=== PATIENT | male | born 1980 | race Caucasian/White ===

== ENCOUNTER 2019-04-08 16:28 | Inpatient (IN) | payer SELFPAY ==
[2019-04-08] MEDS ORDERED: Ondansetron PF 4 MG/2 ML Vial ONE (17:01)
[2019-04-08] MEDS ORDERED: Diazepam 5 MG TAB ONE (17:01)
[2019-04-08] MEDS ORDERED: Lorazepam 2 MG/ML VIAL ONE (17:01)
[2019-04-08 17:13] LABS: #Monocytes 1.7 thou/uL (0.11-0.59); #Neutrophils 14.6 thou/uL (1.40-6.50); %Basophils 0.2 % (0.0-1.0); %Eosinophils 0.1 % (0.0-10.0); %Lymphocytes 15.3 % (21.0-51.0); %Monocytes 8.6 % (0.0-10.0); %Neutrophils 75.7 % (42.0-75.0); Hemoglobin 14.9 g/dL (14.0-18.0); Mean Corpuscular HGB CONC 34.5 g/dL (32.0-36.0); Mean Corpuscular Hemoglobin 32.9 pg (27.0-31.0); Mean Corpuscular Volume 95.4 fL (78.0-98.0); Mean Platelet Volume 8.2 fL (7.4-10.4); Platelet Count 300 thou/uL (130-400); RBC Distribution Width 12.7 % (11.5-14.5); Red Blood Cell (RBC) Count 4.53 mill/uL (4.70-6.10); White Blood Cell (WBC) Count 19.3 thou/uL (4.8-10.8)
[2019-04-08 17:32] LABS: ALT (SGPT) 37 U/L (8-55); AST (SGOT) 60 U/L (5-34); Albumin 4.4 g/dL (3.5-5.0); Alcohol Less than 10 mg/dL (Less than 10); Alkaline Phosphatase 64 U/L (40-150); Anion Gap 20 mmol/L (10-20); BUN (Urea Nitrogen) 21 mg/dL (8.9-20.6); Calc. Creatinine Clearance 0 mL/min (70-130); Calcium 9.3 mg/dL (7.8-10.44); Carbon Dioxide 30 mmol/L (22-29); Chloride 92 mmol/L (98-107); Estimated GFR-MDRD 30; Globulin 3.1 g/dL (2.4-3.5); Glucose 116 mg/dL (70-105); Potassium 3.8 mmol/L (3.5-5.1); Protein, Total 7.5 g/dL (6.0-8.3); Sodium 138 mmol/L (136-145)
[2019-04-08] MEDS ORDERED: Ondansetron ODT 4 MG TAB PO PRN (20:20)
[2019-04-08] MEDS: Diazepam 5 MG TAB PO SCH (21:55)
[2019-04-08] MEDS: Ondansetron PF 4 MG/2 ML Vial IVP PRN (21:55)
[2019-04-08 22:13] VITALS: BMI 37.8
--- NOTE | 2019-04-08 22:39 | HP ---
PRIMARY CARE DOCTOR: Dr. Yury Mccall. CODE STATUS: Code status for this patient is full code. TIME OF EVALUATION: 8:00 p.m. CHIEF COMPLAINT: Chief complaint for the patient was alcohol abuse. HISTORY OF PRESENT ILLNESS: This is a 38-year-old male patient with past medical history of alcohol abuse. Patient came to the hospital after having alcohol withdrawal symptoms, reported the last drink that he had was on . He is fully oriented, however, has chills, with tremors, tachycardia with heart rate in the 120s. Symptoms started suddenly and has been gradually getting worse, reported as severe. REVIEW OF SYSTEMS: GENERAL: Do show the patient had no fever. He did have chills and generalized weakness. RESPIRATORY: No cough, sputum production, or shortness of breath. CARDIOVASCULAR: No chest pain. Patient has palpitation. GASTROINTESTINAL: No nausea, vomiting, diarrhea, or abdominal pain. PULMONARY PHYSICIAN: Patient has tremors. No headache or feeling lightheaded. GENITOURINARY: No burning on urination. EXTREMITIES: No leg swelling. All other systems were reviewed and negative, except for the findings mentioned above. PAST MEDICAL HISTORY: Positive for GERD and alcoholism. PAST SURGICAL HISTORY: No surgical history. FAMILY HISTORY: Reviewed and non contributory for current presentation. PSYCHIATRIC HISTORY: No previous psych history. SOCIAL HISTORY: Patient lives at home with family. Lives with a girlfriend. Drinks everyday, more than 10 drinks per day. No drug use. No smoking history. ALLERGIES: NO KNOWN DRUG ALLERGIES REPORTED. MEDICATIONS: Zantac. PHYSICAL EXAMINATION: VITAL SIGNS: On presentation, blood pressure 134/91 with heart rate 128, respiratory rate was 18, temperature 98.6, pain 1/10, and oxygen saturation 97% on room air. GENERAL APPEARANCE: Patient is alert, oriented, and anxious. HEENT: Eyes, normal conjunctivae. Moist oral mucosa. Anicteric. No JVD. RESPIRATORY: Bilateral air entry. No rales. No wheezes. Symmetric expansion. CARDIOVASCULAR: Patient is tachycardic. No murmurs. No gallop. No edema. ABDOMEN: Soft. Normal bowel sounds. MUSCULOSKELETAL: Baseline range of motion and strength. No tenderness. SKIN: Warm, intact. No pallor. No rash. No redness. Peripheral pulses are present. Capillary refill seems to be intact. NEUROLOGIC: Patient has tremors, baseline speech. Cranial nerves seem to be intact. PSYCH: Patient is in good mood. Optimal judgment. LABORATORY DATA: EKG was reviewed. The patient has sinus tachycardia at the rate of 128, SD 164, QRS 82, QT corrected 423. Chest x-ray; patient has no acute findings. Labs are reviewed. The patient has white count 19.3, hemoglobin 14.9, MCV 95.4 , and platelet count 300. Chemistry; sodium 138; potassium 3.8; chloride 92; carbon dioxide 30; anion gap 20; BUN 21; creatinine 2.43, initially on presentation was 3.14, and his baseline creatinine 10 days ago was 1.0; glucose 116; calcium 9.3; total bilirubin 3.0; AST 60; ALT 37; alk phos 64; serum total protein 7.5; albumin 4.4; globulin 3.1; and albumin-globulin ratio is 1.4. Plasma alcohol less than 10. ASSESSMENT AND PLAN: The patient will be placed in the hospital with following medical problems. 1. Alcohol withdrawal. Patient presenting with tachycardia, anxiety, tremors, blood pressure is high. Patient has been started on SOCORRO protocol. We will put the patient on Valium 5 mg t.i.d. as well as Ativan 2 mg q.4 p.r.n. Patient might need higher dose of benzodiazepine if he goes in full-blown delirium tremens. We will monitor closely. We will treat accordingly. 2. Contraction alkalosis secondary to dehydration with carbon dioxide of 30. We will hydrate, and monitor chemistry. 3. Acute kidney injury. Patient presented with creatinine of 3. On previous admission, the creatinine was normal. This is likely secondary to severe dehydration. We will hydrate, we will monitor, we will treat accordingly. 4. Hyperglycemia with blood sugar 116. Patient has no history of diabetes. This is likely secondary to acute hyperadrenergic state, we will treat underlying condition. We will monitor. 5. Leukocytosis with white count 19.3. No evidence of any infection at this point. Might be secondary to alcohol withdrawal, we will monitor, we will treat accordingly. We will send procalcitonin to help us make a better decision. 6. Deep venous thrombosis prophylaxis. 7. Gastroesophageal reflux disease. Reconcile home medications. Job ID: [id number] [facility]
[2019-04-08] MEDS ORDERED: Metoprolol Tartrate 25 MG TAB PO SCH (23:15)
[2019-04-08] MEDS: Sodium Chloride 0.9% 1,000 ML IV SCH (23:30)
[2019-04-09] MEDS: Lorazepam 2 MG/ML VIAL SLOW IVP PRN (02:56)
[2019-04-09] MEDS: Sodium Chloride 0.9% 1,000 ML IV SCH ×3 (05:41→18:13)
[2019-04-09 06:49] LABS: Anion Gap 13 mmol/L (10-20); BUN (Urea Nitrogen) 19 mg/dL (8.9-20.6); Calc. Creatinine Clearance 100 mL/min (70-130); Calcium 7.6 mg/dL (7.8-10.44); Carbon Dioxide 28 mmol/L (22-29); Chloride 99 mmol/L (98-107); Estimated GFR-MDRD 42; Glucose 94 mg/dL (70-105); Potassium 3.3 mmol/L (3.5-5.1); Sodium 137 mmol/L (136-145)
[2019-04-09 09:01] LABS: #Eosinphils 0.1 thou/uL (0.0-0.7); #Lymphocytes 3.6 thou/uL (1.20-3.40); #Monocytes 0.9 thou/uL (0.11-0.59); %Basophils 0.2 % (0.0-1.0); %Eosinophils 0.6 % (0.0-10.0); %Lymphocytes 26.2 % (21.0-51.0); %Monocytes 6.5 % (0.0-10.0); %Neutrophils 66.5 % (42.0-75.0); Hemoglobin 12.4 g/dL (14.0-18.0); Mean Corpuscular HGB CONC 33.2 g/dL (32.0-36.0); Mean Corpuscular Volume 96.3 fL (78.0-98.0); Mean Platelet Volume 8.9 fL (7.4-10.4); Platelet Count 238 thou/uL (130-400); RBC Distribution Width 12.7 % (11.5-14.5); Red Blood Cell (RBC) Count 3.86 mill/uL (4.70-6.10); White Blood Cell (WBC) Count 13.6 thou/uL (4.8-10.8)
[2019-04-09] MEDS: Diazepam 5 MG TAB PO SCH ×3 (09:19→20:31)
[2019-04-09] MEDS: Enoxaparin Sodium 40 MG/0.4 ML SYRINGE SC SCH (09:25)
[2019-04-09] MEDS: Ondansetron PF 4 MG/2 ML Vial IVP PRN (09:25)
--- NOTE | 2019-04-09 14:24 | PDOC.PN ---
- Subjective Encounter Start Date: 04/09/19 Encounter Start Time: 12:00 Subjective: awake, oriented well -: no shaking or palp -: feels better - Objective Resuscitation Status - Order Detail: 04/08/19 20:20 Resuscitation Status Routine Resuscitation Status: FULL: Full Resuscitation MAR Reviewed: Yes Vital Signs & Weight: Vital Signs (12 hours) Temp Pulse Resp BP BP Pulse Ox 04/09/19 12:54 111/64 04/09/19 12:12 98.6 F 99 17 111/64 97 04/09/19 09:19 98.2 F 113 H 16 128/67 97 04/09/19 08:39 128/67 04/09/19 03:38 98.6 F 100 15 106/66 100 Weight Weight 279 lb I&O: 04/08/19 04/09/19 04/10/19 06:59 06:59 06:59 Intake Total 1340 Output Total 800 Balance 540 Result Diagrams: 04/09/19 05:11 04/09/19 05:11 Phys Exam - Physical Examination HEENT: PERRLA, moist MMs Neck: no JVD, supple Respiratory: no wheezing, no rales Cardiovascular: RRR, no significant murmur Gastrointestinal: soft, non-tender, positive bowel sounds Musculoskeletal: no edema, pulses present Neurological: non-focal, moves all 4 limbs Psychiatric: normal affect, A&O x 3 Dx/Plan (1) alcohol abuse with withdrawal Status: Acute (2) YUNIOR (acute kidney injury) Code(s): N17.9 - ACUTE KIDNEY FAILURE, UNSPECIFIED Status: Acute (3) Hypokalemia Code(s): E87.6 - HYPOKALEMIA Status: Acute - Plan has off and on relapses with alc use, freq is q2-3 months now -: its better than before which was q2-3 wks -: he drank around 40 drinks in 4 days from wednesday -: gentle iv hydration, banana bag, librium, ase protocol -: counselled reg alc cessation, says his girlfriend is very supportive * . Review of Systems - Medications/Allergies Allergies/Adverse Reactions: Allergies Allergy/AdvReac Type Severity Reaction Status Date / Time No Known Allergies Allergy Verified 04/09/19 01:59 Medications: Current Medications Acetaminophen (Tylenol) 650 mg PO Q4H PRN PRN Reason: Headache/Fever/Mild Pain (1-3) Diazepam (Valium) 5 mg PO TID [facility] Last Admin: 04/09/19 09:19 Dose: 5 mg Enoxaparin Sodium (Lovenox) 40 mg SC 0900 [facility] Last Admin: 04/09/19 09:25 Dose: 40 mg Sodium Chloride (Normal Saline 0.9%) 1,000 mls @ 150 mls/hr IV .Q6H40M [facility] Last Admin: 04/09/19 12:28 Dose: 1,000 mls Lorazepam (Ativan) 2 mg SLOW IVP Q4H PRN PRN Reason: Anxiety/Agitation Last Admin: 04/09/19 02:56 Dose: 2 mg Metoprolol Succinate (Toprol Xl) 25 mg PO BID [facility] Last Admin: 04/09/19 09:25 Dose: 25 mg Ondansetron HCl (Zofran Odt) 4 mg PO Q6H PRN PRN Reason: Nausea/Vomiting Ondansetron HCl (Zofran) 4 mg IVP Q6H PRN PRN Reason: Nausea/Vomiting Last Admin: 04/09/19 09:25 Dose: 4 mg
[2019-04-09] MEDS: Acetaminophen 325 MG TAB PO PRN ×2 (18:16→22:18)
[2019-04-10] MEDS: Sodium Chloride 0.9% 1,000 ML IV SCH ×2 (01:38→08:18)
[2019-04-10] MEDS: Acetaminophen 325 MG TAB PO PRN ×4 (03:21→21:40)
[2019-04-10] MEDS: Lorazepam 2 MG/ML VIAL SLOW IVP PRN (03:22)
[2019-04-10] MEDS: Diazepam 5 MG TAB PO SCH ×3 (08:18→21:40)
[2019-04-10] MEDS: Folic Acid 1 MG TAB PO SCH (08:18)
[2019-04-10] MEDS: Thiamine 100 MG TAB PO SCH (08:18)
[2019-04-10] MEDS: Cyanocobalamin (Vitamin B-12) 1,000 MCG TAB PO SCH (08:19)
[2019-04-10] MEDS: Enoxaparin Sodium 40 MG/0.4 ML SYRINGE SC SCH (08:19)
--- NOTE | 2019-04-10 13:51 | PDOC.PN ---
- Subjective Encounter Start Date: 04/10/19 Encounter Start Time: 12:00 Subjective: awake, oriented, feels better -: no tremor or palp -: is amb in hallway, no nausea - Objective Resuscitation Status - Order Detail: 04/08/19 20:20 Resuscitation Status Routine Resuscitation Status: FULL: Full Resuscitation MAR Reviewed: Yes Vital Signs & Weight: Vital Signs (12 hours) Temp Pulse Resp BP BP Pulse Ox 04/10/19 12:00 98.0 F 99 18 118/79 96 04/10/19 08:00 98.2 F 99 18 124/85 94 L 04/10/19 04:00 98.4 F 102 H 18 128/87 128/87 93 L Weight Weight 279 lb I&O: 04/09/19 04/10/19 04/11/19 06:59 06:59 06:59 Intake Total 1340 2300 Output Total 800 950 Balance 540 1350 Result Diagrams: 04/09/19 05:11 04/09/19 05:11 Phys Exam - Physical Examination HEENT: PERRLA, moist MMs Neck: no JVD, supple Respiratory: no wheezing, no rales Cardiovascular: RRR, no significant murmur Gastrointestinal: soft, non-tender, positive bowel sounds Musculoskeletal: no edema, pulses present Neurological: non-focal, moves all 4 limbs Psychiatric: normal affect, A&O x 3 Dx/Plan (1) alcohol abuse with withdrawal Status: Acute (2) YUNIOR (acute kidney injury) Code(s): N17.9 - ACUTE KIDNEY FAILURE, UNSPECIFIED Status: Acute (3) Hypokalemia Code(s): E87.6 - HYPOKALEMIA Status: Acute - Plan is eating and drinking better now -: dc iv fluids -: on librium tid, ativan prn -: oral thiamine, folic acid -: dc plan in am, for help with alc abuse help/counselling/resources * . Review of Systems - Medications/Allergies Allergies/Adverse Reactions: Allergies Allergy/AdvReac Type Severity Reaction Status Date / Time No Known Allergies Allergy Verified 04/09/19 01:59 Medications: Current Medications Acetaminophen (Tylenol) 650 mg PO Q4H PRN PRN Reason: Headache/Fever/Mild Pain (1-3) Last Admin: 04/10/19 10:54 Dose: 650 mg Cyanocobalamin (Vitamin B-12) 1,000 mcg PO DAILY [facility] Last Admin: 04/10/19 08:19 Dose: 1,000 mcg Diazepam (Valium) 5 mg PO TID [facility] Last Admin: 04/10/19 08:18 Dose: 5 mg Enoxaparin Sodium (Lovenox) 40 mg SC 0900 [facility] Last Admin: 04/10/19 08:19 Dose: 40 mg Folic Acid (Folvite) 1 mg PO DAILY [facility] Last Admin: 04/10/19 08:18 Dose: 1 mg Lorazepam (Ativan) 2 mg SLOW IVP Q4H PRN PRN Reason: Anxiety/Agitation Last Admin: 04/10/19 03:22 Dose: 2 mg Metoprolol Succinate (Toprol Xl) 25 mg PO BID [facility] Last Admin: 04/10/19 08:18 Dose: 25 mg Ondansetron HCl (Zofran Odt) 4 mg PO Q6H PRN PRN Reason: Nausea/Vomiting Ondansetron HCl (Zofran) 4 mg IVP Q6H PRN PRN Reason: Nausea/Vomiting Last Admin: 04/09/19 09:25 Dose: 4 mg Pantoprazole Sodium (Protonix) 40 mg PO DAILY [facility] Last Admin: 04/10/19 08:18 Dose: 40 mg Thiamine HCl (Thiamine) 100 mg PO DAILY [facility] Last Admin: 04/10/19 08:18 Dose: 100 mg
[2019-04-11] MEDS: Lorazepam 2 MG/ML VIAL SLOW IVP PRN (02:24)
[2019-04-11] MEDS: Acetaminophen 325 MG TAB PO PRN ×3 (02:24→13:43)
[2019-04-11] MEDS: Diazepam 5 MG TAB PO SCH ×3 (07:58→18:40)
[2019-04-11] MEDS: Folic Acid 1 MG TAB PO SCH (07:59)
[2019-04-11] MEDS: Thiamine 100 MG TAB PO SCH (07:59)
[2019-04-11] MEDS: Cyanocobalamin (Vitamin B-12) 1,000 MCG TAB PO SCH (08:01)
[2019-04-11] MEDS: Enoxaparin Sodium 40 MG/0.4 ML SYRINGE SC SCH (08:05)
[2019-04-11 08:24] LABS: ALT (SGPT) 27 U/L (8-55); AST (SGOT) 42 U/L (5-34); Albumin 3.6 g/dL (3.5-5.0); Alkaline Phosphatase 68 U/L (40-150); Anion Gap 14 mmol/L (10-20); BUN (Urea Nitrogen) 10 mg/dL (8.9-20.6); Calc. Creatinine Clearance 158 mL/min (70-130); Calcium 7.6 mg/dL (7.8-10.44); Carbon Dioxide 21 mmol/L (22-29); Chloride 102 mmol/L (98-107); Estimated GFR-MDRD 71; Globulin 2.8 g/dL (2.4-3.5); Glucose 88 mg/dL (70-105); Protein, Total 6.4 g/dL (6.0-8.3); Sodium 134 mmol/L (136-145)
[2019-04-11 08:27] LABS: Potassium 2.9 mmol/L (3.5-5.1)
[2019-04-11 09:58] LABS: Band 1 % (5-11); Eosinophils 1 % (0-10); Hemoglobin 11.7 g/dL (14.0-18.0); Lymphocytes 26 % (21-51); MDiff Complete? YES; Mean Corpuscular HGB CONC 33.5 g/dL (32.0-36.0); Mean Corpuscular Volume 95.5 fL (78.0-98.0); Monocytes 16 % (0-10); Neutrophil 55 % (42-75); Platelet Count 148 thou/uL (130-400); RBC Morphology Normal; Red Blood Cell (RBC) Count 3.67 mill/uL (4.70-6.10); White Blood Cell (WBC) Count 15.6 thou/uL (4.8-10.8)
[2019-04-11] MEDS: Potassium Chloride 20 MEQ TAB PO SCH ×2 (11:36→17:02)
--- NOTE | 2019-04-11 12:34 | PDOC.PN ---
- Subjective Encounter Start Date: 04/11/19 Encounter Start Time: 12:00 Subjective: feels better, no palp or sob -: has b/l ankle pain and swelling - Objective Resuscitation Status - Order Detail: 04/08/19 20:20 Resuscitation Status Routine Resuscitation Status: FULL: Full Resuscitation MAR Reviewed: Yes Vital Signs & Weight: Vital Signs (12 hours) Temp Pulse Resp BP BP Pulse Ox 04/11/19 12:31 98.5 F 98 18 111/77 96 04/11/19 08:00 128/82 93 L 04/11/19 07:45 99.0 F 102 H 18 128/82 93 L 04/11/19 04:00 119/81 04/11/19 03:58 98.9 F 100 21 H 119/81 93 L Weight Weight 279 lb I&O: 04/10/19 04/11/19 04/12/19 06:59 06:59 06:59 Intake Total 2300 Output Total 950 1000 Balance 1350 -1000 Result Diagrams: 04/11/19 07:33 04/11/19 07:33 Phys Exam - Physical Examination HEENT: PERRLA, moist MMs Neck: no JVD, supple Respiratory: no wheezing, no rales Cardiovascular: RRR, no significant murmur Gastrointestinal: soft, non-tender, positive bowel sounds Musculoskeletal: pulses present ankle edema+ b/l Neurological: non-focal, moves all 4 limbs Dx/Plan (1) alcohol abuse with withdrawal Status: Acute (2) YUNIOR (acute kidney injury) Code(s): N17.9 - ACUTE KIDNEY FAILURE, UNSPECIFIED Status: Resolved (3) Hypokalemia Code(s): E87.6 - HYPOKALEMIA Status: Acute (4) Gout attack Code(s): M10.9 - GOUT, UNSPECIFIED Status: Acute Qualifiers: Gout site: ankle Encounter type: initial encounter Comment: b/l - Plan on librium tid, ativan prn -: replace potassium -: colchicine for gout, renal function is almost normal -: may dc home later this evening if he ambulates and K is near normal * . Review of Systems - Medications/Allergies Allergies/Adverse Reactions: Allergies Allergy/AdvReac Type Severity Reaction Status Date / Time No Known Allergies Allergy Verified 04/09/19 01:59 Medications: Current Medications Acetaminophen (Tylenol) 650 mg PO Q4H PRN PRN Reason: Headache/Fever/Mild Pain (1-3) Last Admin: 04/11/19 08:01 Dose: 650 mg Colchicine (Colchicine) 0.6 mg PO BID [facility] Last Admin: 04/11/19 11:37 Dose: 0.6 mg Cyanocobalamin (Vitamin B-12) 1,000 mcg PO DAILY [facility] Last Admin: 04/11/19 08:01 Dose: 1,000 mcg Diazepam (Valium) 5 mg PO TID [facility] Last Admin: 04/11/19 07:58 Dose: 5 mg Enoxaparin Sodium (Lovenox) 40 mg SC 0900 [facility] Last Admin: 04/11/19 08:05 Dose: 40 mg Folic Acid (Folvite) 1 mg PO DAILY [facility] Last Admin: 04/11/19 07:59 Dose: 1 mg Lorazepam (Ativan) 2 mg SLOW IVP Q4H PRN PRN Reason: Anxiety/Agitation Last Admin: 04/11/19 02:24 Dose: 2 mg Metoprolol Succinate (Toprol Xl) 25 mg PO BID [facility] Last Admin: 04/11/19 08:03 Dose: 25 mg Ondansetron HCl (Zofran Odt) 4 mg PO Q6H PRN PRN Reason: Nausea/Vomiting Ondansetron HCl (Zofran) 4 mg IVP Q6H PRN PRN Reason: Nausea/Vomiting Last Admin: 04/09/19 09:25 Dose: 4 mg Pantoprazole Sodium (Protonix) 40 mg PO DAILY [facility] Last Admin: 04/11/19 08:00 Dose: 40 mg Potassium Chloride (K-Dur) 40 meq PO Q6HR [facility] Stop: 04/12/19 06:01 Last Admin: 04/11/19 11:36 Dose: 40 meq Thiamine HCl (Thiamine) 100 mg PO DAILY [facility] Last Admin: 04/11/19 07:59 Dose: 100 mg
[2019-04-11 18:12] LABS: Anion Gap 13 mmol/L (10-20); BUN (Urea Nitrogen) 13 mg/dL (8.9-20.6); Calc. Creatinine Clearance 166 mL/min (70-130); Calcium 7.8 mg/dL (7.8-10.44); Carbon Dioxide 22 mmol/L (22-29); Chloride 104 mmol/L (98-107); Estimated GFR-MDRD 76; Glucose 96 mg/dL (70-105); Potassium 3.3 mmol/L (3.5-5.1); Sodium 136 mmol/L (136-145)
[2019-04-11 18:48] VITALS: BP 109/76; TEMP 98.4
[2019-04-11] MEDS ORDERED: Colchicine 0.6 MG TAB PO SCH (21:00)
--- NOTE | 2019-04-12 09:45 | DIS ---
DATE OF ADMISSION: 04/08/2019 DATE OF DISCHARGE: 04/11/2019 DISCHARGE DISPOSITION: Home. PRIMARY DISCHARGE DIAGNOSES: 1. Alcohol abuse with withdrawal. 2. Acute kidney injury, resolved. 3. Hypokalemia, resolving. 4. Gout attack in both ankles. PROCEDURES DONE DURING HOSPITALIZATION: White count of 15, H and H 11 and 35, platelet count 148. Initial BUN and creatinine of 22 and 3.1 with discharge BUN and creatinine of 13 and 1.1. Total bilirubin of 3.0 on the day of admission. AST 61, ALT 45, alkaline phosphatase 80. Albumin was 5.3 on admission and 3.6 on the . MCV was 94 and 78% neutrophils. One set of cardiac enzyme was negative. Lipase is 26. Plasma alcohol levels were less than 10. Chest x-ray done on the day of admission showed no acute findings. DISCHARGE MEDICATION: 1. Thiamine 100 mg p.o. daily. 2. Folic acid 1 mg p.o. daily. 3. Valium 5 mg p.o. three times daily p.r.n. for alcohol withdrawal/anxiety/tremors. 4. Vitamin B12 1000 mcg p.o. daily. 5. Zantac 150 mg p.o. daily. ALLERGIES: NO KNOWN DRUG ALLERGIES. DISCHARGE PLAN: The patient to follow up with primary care physician in 1 week. BRIEF COURSE DURING HOSPITALIZATION: The patient initially came on the with complaints of withdrawal symptoms with history of alcohol abuse. He had chills, tremors, and palpitations with heart rate going up to 120s. He has known history of alcohol abuse and has had binge drinking episodes. He has been doing this every 2-3 months or so now. In view of this history, patient was admitted initially to telemetry and was later transferred to medical floor. He has had acute kidney injury on admission which got corrected with gentle hydration. He was placed on banana bag and a protocol for alcohol withdrawal. He has remained hemodynamically stable and cognitively intact during his stay here. He was counseled with regard to alcohol usage. Case Management consultation was requested for help with alcohol abuse resources in the community. Prior to discharge, he is ambulating and eating well. The patient developed bilateral ankle swellings and was given a prescription for colchicine for suspected gout flare up in both ankles. Please see a [id number] documentation for the day of discharge on [employer]. Job ID: [id number]
== END 2019-04-11 19:40 | disposition home or self-care (01) | DRG 897 ==
LOC: ERS 16:28 → ERHOLD 18:11 → 2NO 21:36 → T4-A 04-09 16:09
PROVIDERS: ADMIT Internal Medicine; ATTEND Internal Medicine
PROC: HZ2ZZZZ Detoxification Services for Substance Abuse Treatment (ICD-10-PCS; principal; 2019-04-09)
DX: F10.239 Alcohol dependence with withdrawal, unspecified (principal); N17.9 Acute kidney failure, unspecified; E87.3 Alkalosis; E86.0 Dehydration; R73.9 Hyperglycemia, unspecified; K21.9 Gastro-esophageal reflux disease without esophagitis; D72.829 Elevated white blood cell count, unspecified; E87.6 Hypokalemia
CPT/HCPCS: 36415; 80048; 80053; 80307; 85025; 93005; J1650; J2060; J2405